=== PATIENT | male | born 1965 | race Caucasian/White ===

== ENCOUNTER 2017-06-10 14:49 | Emergency (ER) | payer OTHER ==
[~2017-06-10] VITALS: Ht 175.3 cm; Wt 70.0 kg
[~2017-06-10 14:49] MED LIST: ADDE20CA PO; DICY1TAB26 PO; DILA100C PO; PANT20 PO; TRAM50TA PO
[2017-06-10] MEDS ORDERED: IOHEXOL 350 MG/ML 10 ML VIAL (for RAD DIAG) IVCONTRAST ONE (14:50)
[2017-06-10 14:51] VITALS: BP 118/80; PULSE 69; RESP 13; TEMP 98.4; O2SAT 100
[2017-06-10] MEDS ORDERED: SODIUM CHLORIDE 0.9% FLUSH 10 ML FLUSH IV FLUSH PRN (16:15)
[2017-06-10] MEDS ORDERED: PANT20 PO (16:16)
[2017-06-10] MEDS ORDERED: DILA100C PO (16:16)
[2017-06-10] MEDS ORDERED: SODIUM CHLOR 0.9% 1000 ML INJ 1,000 ML IV ONE (16:18)
[2017-06-10] MEDS ORDERED: ONDANSETRON HCL 4 MG/2 ML VIAL IV PUSH ONE (16:30)
[2017-06-10] MEDS ORDERED: MORPHINE SULFATE 4 MG/ML INJ IV PUSH ONE (16:30)
[2017-06-10 17:12] LABS: AUTOMATED NEUTROPHIL # 3.6 TH/MM3 (1.8-7.7); BASOPHIL # 0.1 TH/MM3 (0-0.2); BASOPHIL % 1.2 % (0.0-2.0); EOSINOPHIL # 0.6 TH/MM3 (0-0.4); EOSINOPHIL % 7.7 % (0.0-4.0); HEMATOCRIT 45.2 % (39.0-51.0); HEMO FLAGS DIFF FINAL; LYMPH % 34.6 % (9.0-44.0); LYMPHOCYTE # 2.5 TH/MM3 (1.0-4.8); MEAN CELL VOLUME 97.5 FL (80.0-100.0); MEAN CORPUSCULAR HGB CONC 33.8 % (32.0-36.0); MONO % 7.9 % (0.0-8.0); NEUT % 48.6 % (16.0-70.0); PLATELET COUNT 223 TH/MM3 (150-450); RED BLOOD COUNT 4.64 MIL/MM3 (4.50-5.90); RED CELL DISTRIBUTION WIDTH 13.6 % (11.6-17.2); WHITE BLOOD COUNT 7.3 TH/MM3 (4.0-11.0)
--- NOTE | 2017-06-10 17:19 | RADRPT ---
EXAM DATE/TIME: 06/10/2017 16:40 [facility] COMPARISON: US ABDOMEN - COMPLETE, February 19, 2013, 8:51. INDICATIONS : Right upper quadrant pain. MEDICAL HISTORY : Renal calculi. Methicillin-resistant Staphylococcus aureus. Seizures. Head trauma. Migraines. Renal failure. ADHD. Skin cancer. Measles. SURGICAL HISTORY : Tonsillectomy. Colectomy. Craniotomy. ENCOUNTER: Subsequent ACUITY: 1 day PAIN SCORE: 10/10 LOCATION: Right upper quadrant MEASUREMENTS: LIVER: 15.2 cm length COMMON DUCT: 4 mm RIGHT KIDNEY: 12.8 x 5.1 x 4.6 cm FINDINGS: LIVER: Normal echotexture without focal lesion or ductal dilatation. COMMON DUCT: No intraluminal mass or stone visualized. GALLBLADDER: Contains no stones, demonstrates no wall thickening or pericholecystic fluid. PANCREAS: The visualized portions are within normal limits. RIGHT KIDNEY: No evidence of hydronephrosis, stone, or mass. CONCLUSION: 1. Negative examination. Matias Miranda MD on June 10, 2017 at 17:17 Board Certified Radiologist. This report was verified electronically.
[2017-06-10 17:25] LABS: ALT (GPT) 26 U/L (12-78)
[2017-06-10 17:27] LABS: ALKALINE PHOSPHATASE 85 U/L (45-117); TOTAL BILIRUBIN ADULT 0.2 MG/DL (0.2-1.0)
[2017-06-10 17:28] LABS: ANION GAP 4 MEQ/L (5-15); AST (GOT) 36 U/L (15-37); BICARBONATE 27.3 MEQ/L (21.0-32.0); BLOOD UREA NITROGEN 15 MG/DL (7-18); CHLORIDE 106 MEQ/L (98-107); GLOMERULAR FILTRATION RATE 96 ML/MIN (>89); POTASSIUM 4.8 MEQ/L (3.5-5.1); SODIUM (NA) 137 MEQ/L (136-145)
--- NOTE | 2017-06-10 17:35 | PD ---
HPI Chief Complaint: GI Complaint Time Seen by Provider: 16:10 Travel History International Travel<30 days: No Contact w/Intl Traveler<30days: No Traveled to known affect area: No History of Present Illness HPI 51-year-old male that presents to the ED for evaluation of epigastric abdominal pain since yesterday. Per patient his been feeling nauseous having some vomiting. He does have a history of perforated bowel as well as gallstones and pancreatitis. He states that he went to see his doctor Dr. Edmondson who sent him here for evaluation. He states that he had diarrhea yesterday but not today. No nausea or vomiting today but the pain per patient is 8 out of 10. Mainly in the epigastric area. The patient gets swollen. Denies any fevers chills or sweats. Denies any recent alcohol use. No recent travel or new foods. No chest pain or shortness of breath. He has not taken anything for this. He takes no medications. He does have a history of perforated bowel for which she required surgery. PFSH Past Medical History ADHD: Yes Arthritis: No Asthma: No Autoimmune Disease: No Blood Disorders: No Anxiety: No Depression: No Heart Rhythm Problems: No Cancer: Yes (SKIN CA ON NOSE IN PAST) Cardiovascular Problems: No High Cholesterol: No Chemotherapy: No Chest Pain: No Congestive Heart Failure: No COPD: No Cerebrovascular Accident: No Diabetes: No Diminished Hearing: No Endocrine: No Gastrointestinal Disorders: Yes GERD: No Genitourinary: Yes Headaches: Yes Hepatitis: No Hiatal Hernia: No Hypertension: No Immune Disorder: No Implanted Vascular Access Dvce: No Kidney Stones: Yes Musculoskeletal: Yes Neurologic: Yes Psychiatric: No Reproductive: No Respiratory: Yes Immunizations Current: Yes Migraines: Yes Myocardial Infarction: No Radiation Therapy: No Renal Failure: Yes Seizures: Yes Sickle Cell Disease: No Sleep Apnea: No Thyroid Disease: No Ulcer: No PNEUMOCCOCAL Vaccine (Year): 2 Past Surgical History Abdominal Surgery: Yes (INTESTINE REMOVAL ) AICD: No Arteriovenous Shunt: No Cardiac Surgery: No Ear Surgery: No Endocrine Surgery: No Eye Surgery: No Genitourinary Surgery: No Gynecologic Surgery: No Insulin Pump: No Joint Replacement: No Neurologic Surgery: Yes (CRANIOTOMY 2002) Oral Surgery: Yes (tooth extraction 03/26/14) Pacemaker: No Thoracic Surgery: No Tonsillectomy: Yes Other Surgery: Yes (COLECTOMY AND INTESTINAL) Social History Alcohol Use: No Tobacco Use: Yes (ONE PPD) Substance Use: No Allergies-Medications (Allergen,Severity, Reaction): Coded Allergies: cortisone (Unverified Allergy, Intermediate, HIVES, 06/10/17) penicillin G (Unverified Allergy, Intermediate, HIVES, 06/10/17) *MDRO Multi-Drug Resistant Organism (Verified Allergy, Unknown, 06/10/17) MRSA Reported Meds & Prescriptions Reported Meds & Active Scripts Active Zofran (Ondansetron HCl) 4 Mg Tab 4 Mg PO Q6HR PRN Zantac (Ranitidine HCl) 150 Mg Tab 150 Mg PO BID Protonix (Pantoprazole Sodium) 40 Mg Tab 40 Mg PO DAILY Lortab (Hydrocodone-Acetaminophen) 5-325 Mg Tab 1 Tab PO Q6H PRN Reported Protonix (Pantoprazole Sodium) 20 Mg Tab 20 Mg PO DAILY Dilantin (Phenytoin Extended) 100 Mg Cap 400 Mg PO DAILY Review of Systems Except as stated in HPI: all other systems reviewed are Neg Physical Exam Narrative GENERAL: SKIN: Warm and dry. HEAD: Atraumatic. Normocephalic. EYES: Pupils equal and round. No scleral icterus. No injection or drainage. ENT: No nasal bleeding or discharge. Mucous membranes pink and moist. Tongue is midline. No uvula deviation. NECK: Trachea midline. No JVD. CARDIOVASCULAR: Regular rate and rhythm. No murmurs, S3, S4. RESPIRATORY: No accessory muscle use. Clear to auscultation. Breath sounds equal bilaterally. GASTROINTESTINAL: Abdomen soft,tender to papation on the epigastric area, nondistended. Hepatic and splenic margins not palpable. MUSCULOSKELETAL: Extremities without clubbing, cyanosis, or edema. No obvious deformities. Full range of motion of the upper and lower extremities bilaterally. 2+ pulses bilaterally. NEUROLOGICAL: Awake and alert. No obvious cranial nerve deficits. Motor grossly within normal limits. Five out of 5 muscle strength in the arms and legs. Normal speech. PSYCHIATRIC: Appropriate mood and affect; insight and judgment normal. Data Data Last Documented VS Vital Signs Date Time Temp Pulse Resp B/P (MAP) Pulse Ox O2 Delivery O2 Flow Rate FiO2 06/10/17 18:43 20 06/10/17 18:41 67 113/74 (87) 100 Room Air 06/10/17 14:51 98.4 Orders Orders Complete Blood Count With Diff (06/10/17 16:07) Comprehensive Metabolic Panel (06/10/17 16:07) Lipase (06/10/17 16:07) Lactic Acid (06/10/17 16:07) Urinalysis - C+S If Indicated (06/10/17 16:07) Iv Access Insert/Monitor (06/10/17 16:07) Ecg Monitoring (06/10/17 16:07) Oximetry (06/10/17 16:07) Sodium Chloride 0.9% Flush (Ns Flush) (06/10/17 16:15) Us Abdomen Gallbladder (06/10/17 ) Morphine Inj (Morphine Inj) (06/10/17 16:30) Ondansetron Inj (Zofran Inj) (06/10/17 16:30) Sodium Chlor 0.9% 1000 Ml Inj (Ns 1000 M (06/10/17 16:18) Ct Abd/Pel W Iv Contrast(Rout) (06/10/17 ) Pantoprazole Inj (Protonix Inj) (06/10/17 17:45) Famotidine Inj (Pepcid Inj) (06/10/17 17:45) Iohexol 350 Inj (Omnipaque 350 Inj) (06/10/17 14:50) Labs Laboratory Tests Test 06/10/17 16:30 White Blood Count 7.3 TH/MM3 Red Blood Count 4.64 MIL/MM3 Hemoglobin 15.3 GM/DL Hematocrit 45.2 % Mean Corpuscular Volume 97.5 FL Mean Corpuscular Hemoglobin 33.0 PG Mean Corpuscular Hemoglobin Concent 33.8 % Red Cell Distribution Width 13.6 % Platelet Count 223 TH/MM3 Mean Platelet Volume 10.5 FL Neutrophils (%) (Auto) 48.6 % Lymphocytes (%) (Auto) 34.6 % Monocytes (%) (Auto) 7.9 % Eosinophils (%) (Auto) 7.7 % Basophils (%) (Auto) 1.2 % Neutrophils # (Auto) 3.6 TH/MM3 Lymphocytes # (Auto) 2.5 TH/MM3 Monocytes # (Auto) 0.6 TH/MM3 Eosinophils # (Auto) 0.6 TH/MM3 Basophils # (Auto) 0.1 TH/MM3 CBC Comment DIFF FINAL Differential Comment Blood Urea Nitrogen 15 MG/DL Creatinine 0.85 MG/DL Random Glucose 79 MG/DL Total Protein 7.4 GM/DL Albumin 3.6 GM/DL Calcium Level 8.7 MG/DL Alkaline Phosphatase 85 U/L Aspartate Amino Transf (AST/SGOT) 36 U/L Alanine Aminotransferase (ALT/SGPT) 26 U/L Total Bilirubin 0.2 MG/DL Sodium Level 137 MEQ/L Potassium Level 4.8 MEQ/L Chloride Level 106 MEQ/L Carbon Dioxide Level 27.3 MEQ/L Anion Gap 4 MEQ/L Estimat Glomerular Filtration Rate 96 ML/MIN Lactic Acid Level 1.3 mmol/L Lipase 131 U/L [facility] Medical Decision Making Medical Screen Exam Complete: Yes Emergency Medical Condition: Yes Medical Record Reviewed: Yes Interpretation(s) CBC & BMP Diagram 06/10/17 16:30 Total Protein 7.4, Albumin 3.6, Calcium Level 8.7, Alkaline Phosphatase 85, Aspartate Amino Transf (AST/SGOT) 36, Alanine Aminotransferase (ALT/SGPT) 26, Total Bilirubin 0.2 Last Impressions Gall Bladder Ultrasound 06/10/17 0000 Signed Impressions: Service Date/Time: Saturday, June 10, 2017 16:40 - CONCLUSION: 1. Negative examination. Matias Miranda MD CT abdomen negative Lipase WNL Differential Diagnosis Epigastric pain versus GERD versus gastritis versus pancreatitis versus cholecystitis versus cholelithiasis Narrative Course 51-year-old male that presents to the ED for evolution of epigastric pain. Patient was properly examined and was found to have signs and symptoms concerning for possible pancreatitis. Labs and imaging were ordered. Patient was given IV pain medications and fluids. Labs and imaging showed no sign of acute disease. Patient was reassured. At this time I believe that this is likely gastritis. Patient has no gallbladder stones or any pancreatitis. I will treat patient for this with Protonix, Zantac, Zofran as well as Lortab. Told to use only as needed. Close follow with PCP. See ED worsening symptoms. I did discuss with patient in length that he needs to follow with a GI doctor and avoid certain foods. Diagnosis Primary Impression: Gastritis Qualified Codes: K29.00 - Acute gastritis without bleeding Patient Instructions: General Instructions, Narcotic given in the ED Additional Instructions: Take medications as prescribed. Follow-up with PCP. See ED for any worsening symptoms. Do not drink or drive while taking pain medication. Apply ice or heat as needed for pain. Med/Other Pt SpecificInfo: Prescription(s) given Scripts Ondansetron (Zofran) 4 Mg Tab 4 MG PO Q6HR Y for NAUSEA OR VOMITING, #20 TAB 0 Refills Prov: Aime Siddiqui MD 06/10/17 Ranitidine (Zantac) 150 Mg Tab 150 MG PO BID for Reduce Stomach Acid, #60 TAB 0 Refills Prov: Aime Siddiqui MD 06/10/17 Pantoprazole (Protonix) 40 Mg Tab 40 MG PO DAILY for Reflux, #30 TAB 0 Refills Prov: Aime Siddiqui MD 06/10/17 Hydrocodone-Acetaminophen (Lortab) 5-325 Mg Tab 1 TAB PO Q6H Y for PAIN, #15 TAB 0 Refills Prov: Aime Siddiqui MD 06/10/17 Disposition: 01 DISCHARGE HOME Condition: Ady Young Jun 10, 2017 17:35
[2017-06-10] MEDS ORDERED: PANTOPRAZOLE SODIUM 40 MG VIAL IVP ONE (17:45)
[2017-06-10] MEDS ORDERED: FAMOTIDINE 20 MG/2 ML VIAL IV PUSH ONE (17:45)
--- NOTE | 2017-06-10 18:19 | RADRPT ---
EXAM DATE/TIME: 06/10/2017 18:02 [facility] COMPARISON: CT ABDOMEN & PELVIS W CONTRAST, April 23, 2016, 16:49. INDICATIONS : Right side upper abdomen pain. IV CONTRAST: 95 cc Omnipaque 350 (iohexol) IV ORAL CONTRAST: No oral contrast ingested. RADIATION DOSE: 6.64 CTDIvol (mGy) MEDICAL HISTORY : Seizures. SURGICAL HISTORY : bowel removed ENCOUNTER: Initial ACUITY: 2 days PAIN SCALE: 5/10 LOCATION: Right upper quadrant TECHNIQUE: Volumetric scanning of the abdomen and pelvis was performed. Using automated exposure control and ad justment of the mA and/or kV according to patient size, radiation dose was kept as low as reasonably achievable to obtain optimal diagnostic quality images. DICOM format image data is available electro nically for review and comparison. FINDINGS: LOWER LUNGS: The visualized lower lungs are clear. LIVER: Homogeneous density without lesion. There is no dilation of the biliary tree. No calcified gallston es. SPLEEN: Normal size without lesion. PANCREAS: Within normal limits. KIDNEYS: Normal in size and shape. There is no mass, stone or hydronephrosis. ADRENAL GLANDS: Within normal limits. VASCULAR: There is no aortic aneurysm. BOWEL/MESENTERY: The stomach, small bowel, and colon demonstrate no acute abnormality. There are postsurgical changes in the cecum. There is no free intraperitoneal air or fluid. ABDOMINAL WALL: Within normal limits. RETROPERITONEUM: There is no lymphadenopathy. BLADDER: No wall thickening or mass. REPRODUCTIVE: Within normal limits. INGUINAL: There is no lymphadenopathy or hernia. MUSCULOSKELETAL: There are degenerative changes in the lower lumbar spine. There is a pars defect bilaterally at L5. CONCLUSION: 1. Postsurgical changes in the cecum. 2. Degenerative changes of the lumbar spine with a bilateral pars fracture of L5. 3. No definite abnormality to explain the patient's abdominal pain identified. Matias Miranda MD on June 10, 2017 at 18:14 Board Certified Radiologist. This report was verified electronically.
[2017-06-10 18:41] VITALS: BP 113/74; PULSE 67; RESP 24; O2SAT 100
[2017-06-10 18:43] VITALS: RESP 20
[2017-06-10] MEDS ORDERED: ZOFR4TAB PO (18:50)
[2017-06-10] MEDS ORDERED: PROT40TA PO (18:50)
[2017-06-10] MEDS ORDERED: HYDR-3533 PO (18:50)
[2017-06-10] MEDS ORDERED: ZANT150T2 PO (18:50)
[2017-06-10 19:39] LABS: BLOOD, URINE NEG (NEG); COMMENT (UR) CULT NOT INDICATED; CULTURE IF INDICATED CULT NOT INDICATED; GLUCOSE,URINE NEG (NEG); KETONE, URINE NEG (NEG); MUCUS URINE FEW /lpf (OCC); NITRITE,URINE NEG (NEG); PH, URINE 6.5 (5.0-8.5); URINE COLOR YELLOW (YELLW/STRAW)
== END 2017-06-10 19:21 | disposition home or self-care (01) ==
LOC: NEPC 14:49
DX: K29.70 Gastritis, unspecified, without bleeding (principal); F90.9 Attention-deficit hyperactivity disorder, unspecified type; N19 Unspecified kidney failure; R56.9 Unspecified convulsions; F17.200 Nicotine dependence, unspecified, uncomplicated; Z79.899 Other long term (current) drug therapy; Z87.442 Personal history of urinary calculi; Z88.0 Allergy status to penicillin; Z88.8 Allergy status to other drugs, medicaments and biological substances
CPT/HCPCS: 74177; 76705; 80053; 81001; 83605; 83690; 85025; 96361; 96374; 96375; 99285; C9113; J2270; J2405; J7030; Q9967

== ENCOUNTER 2017-12-13 11:07 | Emergency (ER) | payer OTHER ==
[~2017-12-13] VITALS: Ht 175.3 cm; Wt 68.5 kg
[~2017-12-13 11:07] MED LIST changes: -ADDE20CA PO; -DICY1TAB26 PO; +HYDR-3533 PO; +PROT40TA PO; -TRAM50TA PO; +ZANT150T2 PO; +ZOFR4TAB PO
[2017-12-13 11:13] VITALS: BP 125/83; PULSE 84; RESP 18; TEMP 97.5; O2SAT 100
[2017-12-13] MEDS ORDERED: ADDE20 PO (11:25)
--- NOTE | 2017-12-13 12:22 | PD ---
HPI Chief Complaint: Laceration/Skin Injury Time Seen by Provider: 12:00 Travel History International Travel<30 days: No Contact w/Intl Traveler<30days: No Traveled to known affect area: No History of Present Illness HPI 52-year-old male patient with history of presents to the ER today because he states that he was at work today and had slipped and hit his right leg on a metallic spot on the trailer and has a laceration to his right leg. He denies any other injuries or issues. Modifying Factors: None Associated Signs & Symptoms: Fall next to trailer, leg laceration Risk Factors: None PFSH Past Medical History ADHD: Yes Arthritis: No Asthma: No Autoimmune Disease: No Blood Disorders: No Anxiety: No Depression: No Heart Rhythm Problems: No Cancer: Yes (SKIN CA ON NOSE IN PAST) Cardiovascular Problems: No High Cholesterol: No Chemotherapy: No Chest Pain: No Congestive Heart Failure: No COPD: No Cerebrovascular Accident: No Diabetes: No Diminished Hearing: No Endocrine: No Gastrointestinal Disorders: Yes GERD: No Genitourinary: Yes Headaches: Yes Hepatitis: No Hiatal Hernia: No Heparin Induced Thrombocytopen: No Hypertension: No Immune Disorder: No Implanted Vascular Access Dvce: No Kidney Stones: Yes Musculoskeletal: Yes Neurologic: Yes Psychiatric: No Reproductive: No Respiratory: Yes Immunizations Current: Yes Migraines: Yes Myocardial Infarction: No Radiation Therapy: No Renal Failure: Yes Seizures: Yes Sickle Cell Disease: No Sleep Apnea: No Thyroid Disease: No Ulcer: No PNEUMOCCOCAL Vaccine (Year): 2 ?: Not Past Surgical History Abdominal Surgery: Yes (INTESTINE REMOVAL ) AICD: No Arteriovenous Shunt: No Cardiac Surgery: No Ear Surgery: No Endocrine Surgery: No Eye Surgery: No Genitourinary Surgery: No Gynecologic Surgery: No Insulin Pump: No Joint Replacement: No Neurologic Surgery: Yes (CRANIOTOMY 2002) Oral Surgery: Yes (tooth extraction 03/26/14) Pacemaker: No Thoracic Surgery: No Tonsillectomy: Yes Other Surgery: Yes (COLECTOMY AND INTESTINAL) Social History Alcohol Use: No Tobacco Use: Yes (ONE PPD) Substance Use: No Allergies-Medications (Allergen,Severity, Reaction): Coded Allergies: cortisone (Unverified Allergy, Intermediate, HIVES, 12/13/17) penicillin G (Unverified Allergy, Intermediate, HIVES, 12/13/17) *MDRO Multi-Drug Resistant Organism (Verified Allergy, Unknown, 12/13/17) MRSA Reported Meds & Prescriptions Reported Meds & Active Scripts Active Reported Adderall (Amphetamine-Dextroamphetamine) 20 Mg Tab 20 Mg PO DAILY Avoid late evening doses. Space doses at least 4 to 6 hours if more than once/day dosing. Protonix (Pantoprazole Sodium) 20 Mg Tab 20 Mg PO DAILY Dilantin (Phenytoin Extended) 100 Mg Cap 400 Mg PO DAILY Review of Systems Except as stated in HPI: all other systems reviewed are Neg Physical Exam Narrative GENERAL: Well-nourished, well-developed well-developed middle-age male patient in mild distress. Awake and oriented 3. SKIN: Focused skin assessment warm/dry. There is a 4 cm U-shaped laceration on the right anterior viramontes. HEAD: Normocephalic. EYES: No scleral icterus. No injection or drainage. NECK: Supple, trachea midline. No JVD or lymphadenopathy. CARDIOVASCULAR: Regular rate and rhythm without murmurs, gallops, or rubs. RESPIRATORY: Breath sounds equal bilaterally. No accessory muscle use. GASTROINTESTINAL: Abdomen soft, non-tender, nondistended. MUSCULOSKELETAL: No cyanosis, or edema. BACK: Nontender without obvious deformity. No CVA tenderness. Data Data Last Documented VS Vital Signs Date Time Temp Pulse Resp B/P (MAP) Pulse Ox O2 Delivery O2 Flow Rate FiO2 12/13/17 11:13 97.5 84 18 125/83 (97) 100 Orders Orders Tibia/Fibula (Ap/Lat) (12/13/17 12:01) Lidocaine 1% Inj (50 Ml) (Xylocaine 1% I (12/13/17 13:00) Ed Discharge Order (12/13/17 13:23) MDM Medical Decision Making Medical Screen Exam Complete: Yes Emergency Medical Condition: Yes Medical Record Reviewed: Yes Interpretation(s) Last 24 hours Impressions Tibia/Fibula X-Ray 12/13/17 1201 Signed Impressions: Service Date/Time: Wednesday, December 13, 2017 12:03 - CONCLUSION: The osseous structures of the leg are intact. Curry Bradley MD Differential Diagnosis Leg laceration Narrative Course Patient states that he had a tetanus shot 5 years ago when he had surgery. X- ray did not show any signs of foreign body or bony injuries. Laceration was sutured by me in the ER. Wound care instructions are given. At this point, plan would be to release the patient would follow-up to primary care doctor. Return for any signs of infections, pain, bleeding, or new symptoms as needed. Sutures will need to be removed in 14 days. Procedures Procedure Narrative LACERATION LOCATION: Right leg LENGTH: 4 cm NUMBER OF STITCHES/TORSTEN: 8 REPAIR: The area of the laceration was prepped with Betadine and sterilely draped. The laceration was infiltrated with 5 mL's of 1% lidocaine. The wound was copiously irrigated and explored without evidence of foreign body, tendon injury or neurovascular injury. The wound was closed using three-point 0 nylon. This was a single layer repair. A sterile dressing was applied. The patient was advised to keep the dressing clean and dry. Patient tolerated the procedure well. Diagnosis Primary Impression: Laceration of right lower leg Med/Other Pt SpecificInfo: Prescription(s) given Scripts Doxycycline Hyclate (Doxycycline Hyclate) 100 Mg Cap 100 MG PO BID for Infection for 7 Days, #14 CAP 0 Refills Prov: Yulisa Arndt MD 12/13/17 Ibuprofen (Ibuprofen) 600 Mg Tab 600 MG PO Q6H Y for Pain/Inflammation, #20 TAB 0 Refills Prov: Yulisa Arndt MD 12/13/17 Disposition: 01 DISCHARGE HOME Condition: Stable Yulisa Arndt MD Dec 13, 2017 12:22
--- NOTE | 2017-12-13 12:24 | RADRPT ---
EXAM DATE/TIME: 12/13/2017 12:03 [facility] COMPARISON: No previous studies available for comparison. INDICATIONS : Stepped off trailer today and metal cut patient in viramontes. MEDICAL HISTORY : Renal calculi. Methicillin-resistant Staphylococcus aureus. Seizures. Head trauma. Migraines. Renal f ailure. ADHD. Skin cancer. Measles SURGICAL HISTORY : Tonsillectomy. Colectomy. Craniotomy. ENCOUNTER: Initial ACUITY: 1 day PAIN SCORE: 10/10 LOCATION: Right Tib/Fib FINDINGS: Two view examination of the right tibia demonstrates no evidence of fracture or dislocation. Bony mi neralization is normal. The soft tissue structures are intact. No radiopaque foreign bodies. CONCLUSION: The osseous structures of the leg are intact. Curry Bradley MD on December 13, 2017 at 12:23 Board Certified Radiologist. This report was verified electronically.
[2017-12-13] MEDS ORDERED: LIDOCAINE HCL 1% 50 ML VIAL INFIL ONE (13:00)
[2017-12-13] MEDS ORDERED: IBUP-232 PO (13:25)
[2017-12-13] MEDS ORDERED: DOXY100C PO (13:26)
== END 2017-12-13 13:46 | disposition home or self-care (01) ==
LOC: PHED 11:07
DX: S81.811A Laceration without foreign body, right lower leg, initial encounter (principal); F90.9 Attention-deficit hyperactivity disorder, unspecified type; N19 Unspecified kidney failure; F17.200 Nicotine dependence, unspecified, uncomplicated; W01.0XXA Fall on same level from slipping, tripping and stumbling without subsequent striking against object, initial encounter; Y99.0 Civilian activity done for income or pay; Z85.828 Personal history of other malignant neoplasm of skin; Z87.442 Personal history of urinary calculi; Z86.69 Personal history of other diseases of the nervous system and sense organs
CPT/HCPCS: 12002; 73590

== ENCOUNTER 2018-01-05 06:14 | Day surgery (SDC) | payer OTHER ==
[~2018-01-05] VITALS: Ht 175.3 cm; Wt 65.8 kg
[~2018-01-05 06:14] MED LIST changes: +ADDE20 PO; +DOXY100C PO; -HYDR-3533 PO; +IBUP-232 PO; -PROT40TA PO; -ZANT150T2 PO; -ZOFR4TAB PO
[2018-01-05] MEDS ORDERED: IOHEXOL 350 MG/ML 50 ML BTL (for Cath Lab) OTHER ONE (06:15)
[2018-01-05] MEDS ORDERED: NS 1000P @30 MLS/HR (KVO) IV SCH (06:45)
[2018-01-05 07:05] VITALS: BP 100/71; PULSE 68; RESP 18; O2SAT 97
[2018-01-05] MEDS ORDERED: METO25TA3 PO (07:12)
[2018-01-05] MEDS ORDERED: ASPI-516 CHEW (07:12)
[2018-01-05] MEDS ORDERED: OMEP20TA93 PO (07:13)
[2018-01-05] MEDS ORDERED: HEPARIN-NS/PF FLUSH BAG 2,000 ML IV FLUSH ONE (08:39)
[2018-01-05] MEDS ORDERED: MIDAZOLAM HCL 2 MG/2 ML VIAL ONE ×2 (08:40→08:44)
[2018-01-05] MEDS ORDERED: SODIUM CHLOR 0.9% 1000 ML INJ 1,000 ML IV SCH (09:09)
[2018-01-05] MEDS ORDERED: MISC INFORMATION XX ONE (09:15)
[2018-01-05] MEDS ORDERED: SODIUM CHLORIDE 0.9% FLUSH 10 ML FLUSH IV FLUSH PRN (09:15)
[2018-01-05] MEDS ORDERED: HEPARIN SODIUM - IV 10,000 UNITS/10 ML VIAL ONE (09:21)
[2018-01-05] MEDS ORDERED: NITROGLYCERIN INJ 5 ML ONE (09:21)
--- NOTE | 2018-01-05 09:46 | MA ---
cc: Eusebio Christie DO DATE: 01/05/2018 PALLIATIVE NURSE: Eusebio Christie DO ASSISTING PALLIATIVE NURSE: Keo Kong MD INDICATIONS: Unstable angina. PROCEDURE PERFORMED: Left and right coronary angiography via the right radial artery approach. PROCEDURE: The patient was brought to the cardiac catheterization laboratory and timeout was taken to verify the patient and procedure. The patient was prepped and draped in usual sterile fashion. The right radial artery was identified by anatomic landmarks and anesthetized with 2% lidocaine. The patient received moderate sedation with fentanyl and Versed. Right radial artery was accessed using a modified Seldinger technique with a 2.5 cm Cook type needle and a J wire was advanced under fluoroscopic guidance into the ascending aorta. 3000 units of heparin was administered through the case. The right radial artery was accessed with a JR4 6-Bermudian catheter and angiographic images were obtained. The catheter was then exchanged over a wire for a JL 3.5, 6-Bermudian catheter which accessed the left coronary artery. Orthogonal angiographic images were obtained. The case was then completed with removal of the catheter over wire and placement of a TR band with hemostasis achieved prior to the patient leaving the cardiac catheterization laboratory. CORONARY ANGIOGRAPHY: 1. Left main coronary artery is a large caliber vessel and is angiographically free of disease. 2. LAD: The LAD is a large caliber vessel that gives rise to a large diagonal vessel, both of which are angiographically free of disease. The LAD continues distally to wrap the apex. 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 3. Left circumflex: The LCX is a moderate caliber vessel in the proximal portion and gives rise to two obtuse marginal branches before continuing through the AV groove as a small caliber vessel. It is angiographically free of disease. 4. Right coronary artery: The RCA is a dominant vessel and continues with a large caliber right posterior descending artery. The system is angiographically free of disease. CONCLUSIONS: Normal epicardial coronary arteries with a noted mid LAD myocardial bridge. PLAN: The patient will have aspirin and metoprolol discontinued and may continue medical management. Eusebio Christie DO [facility]/TL , 09:27 AM , 09:45 AM
[2018-01-05] MEDS ORDERED: SODIUM CHLORIDE 0.9% FLUSH 10 ML FLUSH IV FLUSH SCH (21:00)
== END 2018-01-05 12:31 | disposition home or self-care (01) ==
LOC: HDIC 06:14 → HDOC 06:14
PROVIDERS: ATTEND Internal Medicine Cardiovascular Disease
DX: Q24.5 Malformation of coronary vessels (principal); I20.0 Unstable angina; F17.210 Nicotine dependence, cigarettes, uncomplicated
CPT/HCPCS: 86850; 86900; 86901; 93454; 99152; C1769; C1893; J1644; J2250; J3010; J7030; Q9967